=== PATIENT | female | born 1975 | race Caucasian/White ===

== ENCOUNTER 2017-05-25 04:20 | Outpatient (CLI) ==
[2013-02-01 18:16] VITALS: TEMP 98.6
[2016-07-09 08:10] VITALS: BMI 38.6
[2017-05-25 04:54] LABS: BASOPHILS # (AUTO) 0.1 K/uL (0-0.2); BASOPHILS % (AUTO) 0.8 % (0.0-3.0); EOSINOPHILS # (AUTO) 0.2 K/ul (0.0-0.7); EOSINOPHILS % (AUTO) 3.7 % (0.0-7.0); HEMATOCRIT 40.9 % (37.0-47.0); HEMOGLOBIN 13.7 g/dl (12.0-16.0); IMMATURE GRANULOCYTE % (AUTO) 0.3 % (0.0-5.0); LYMPHOCYTES # (AUTO) 2.1 K/uL (0.60-3.4); LYMPHOCYTES % (AUTO) 33.6 (10.0-50.0); MEAN CORPUSCULAR HEMOGLOBIN 30.2 pg (27.0-31.0); MEAN CORPUSCULAR HGB CONC 33.5 (31.8-35.4); MEAN CORPUSCULAR VOLUME 90.3 fl (81.0-99.0); MONOCYTES # (AUTO) 0.7 K/uL (0.4-2.0); MONOCYTES % (AUTO) 11.1 (0-10); NEUTROPHILS # (AUTO) 3.1 K/ul (2.0-6.9); NEUTROPHILS % (AUTO) 50.5; PLATELET COUNT 247 10^3/uL (140-440); RED BLOOD COUNT 4.53 10^6/ul (4.20-5.40); WHITE BLOOD COUNT 6.22 K/ul (4.6-10.2)
[2017-05-25 05:41] LABS: ALBUMIN 3.5 g/dL (3.4-5.0); ALBUMIN/GLOBULIN RATIO 1.06; ANION GAP 13.9; BILIRUBIN,TOTAL 0.41 mg/dL (0.00-1.20); BUN/CREATININE RATIO 14.47; CALCIUM 9.4 mg/dL (8.2-10.2); CHOL/HDL RATIO 5.2 (4.5-5.5); CREATININE 0.76 mg/dL (0.60-1.30); POTASSIUM 3.9 mmol/L (3.5-5.10); TOTAL PROTEIN 6.8 g/dL (6.4-8.2)
== END 2017-05-25 04:21 | disposition home or self-care (01) ==
LOC: LAB 04:20
PROVIDERS: ATTEND Nurse Practitioner Family
DX: Z00.00 Encounter for general adult medical examination without abnormal findings (principal)
CPT/HCPCS: 36415; 80053; 80061; 84443; 85025

== ENCOUNTER 2017-06-20 12:33 | Outpatient (CLI) ==
[2013-02-01 18:16] VITALS: TEMP 98.6
[2016-07-09 08:10] VITALS: BMI 38.6
[2017-06-20 13:05] LABS: FLU INTERNAL QC INTERNAL QC VALID; RAPID FLU A NEGATIVE (NEGATIVE); RAPID FLU B NEGATIVE (NEGATIVE)
== END 2017-06-20 12:34 | disposition home or self-care (01) ==
LOC: LAB 12:33
PROVIDERS: ATTEND Nurse Practitioner Family
DX: J02.9 Acute pharyngitis, unspecified (principal); R50.9 Fever, unspecified
CPT/HCPCS: 87804; 87880

== ENCOUNTER 2017-06-22 20:33 | Emergency (ER) ==
[2017-06-22 20:45] VITALS: BP 137/85; TEMP 99; BMI 37.8
[2017-06-22] MEDS ORDERED: TORADOL IM STA (21:03)
[2017-06-22] MEDS ORDERED: DECADRON 4 MG/ML SDV IM STA (21:03)
--- NOTE | 2017-06-22 21:12 | ED.PDOC ---
General ED Provider: Dr. SHADE MEJIA Chief Complaint: Allergic Reaction Stated Complaint: Left foot redness, swelling itching hurting. Time Seen by Physician: 21:11 Mode of Arrival: Walk-In Information Source: Patient Primary Care Provider: DENNY CAIN Nursing and Triage Documentation Reviewed and Agree: Yes Musculoskeletal Complaint Exam - Ankle/Foot Complaint/Exam Location of Injury: Reports: Left, Foot Symptoms Are: Reports: Still present Onset of Pain: Reports: Immediate Initial Severity: Moderate Current Severity: Moderate Location: Reports: Discrete Character: Reports: Aching Alleviating: Reports: None Aggravating: Reports: Movement, Weight bearing Able to Bear Weight: No Associated Signs and Symptoms: Reports: Swelling, Redness, Fever. Denies: Bruising, Weakness, Numbness, Tingling Related History: Reports: Similar episode Gout Risk Factors: Reports: None Related Surgical History: Reports: None Lower Extremity Findings: Present: Swelling Achilles Tendon Abnormality: No Tenderness: Present: Midfoot, Metatarsals Limited Range of Motion: Present: Inversion, Eversion, Dorsiflexion, Plantarflexion Differential Diagnosis: Gout, Sprain Review of Systems - Review Of Systems Constitutional: Reports: No symptoms Eyes: Reports: No symptoms Ears, Nose, Mouth, Throat: Reports: No symptoms Respiratory: Reports: No symptoms Cardiac: Reports: No symptoms GI: Reports: No symptoms : Reports: No symptoms Musculoskeletal: Reports: No symptoms, Gout, Joint pain Skin: Reports: No symptoms Neurological: Reports: No symptoms Endocrine: Reports: No symptoms Hematologic/Lymphatic: Reports: No symptoms All Other Systems: Reviewed and Negative Past Medical History - Past Medical History Previously Healthy: Yes Endocrine: Reports: None Cardiovascular: Reports: None Respiratory: Reports: None Hematological: Reports: None Gastrointestinal: Reports: None Genitourinary: Reports: None Neuro/Psych: Reports: None Musculoskeletal: Reports: Unknown Cancer: Reports: Other Last Menstrual Period: na - Surgical History General Surgical History: Reports: Unknown - Family History Family History: Reports: Unknown - Social History Smoking Status: Never smoker Hx Substance Use: No Alcohol Screening: None - Immunizations Tetanus Shot up to Date: Yes Physical Exam - Physical Exam Appearance: Well-appearing, Well-nourished Pain Distress: Mild Eyes: TIFFANI, EOMI, Conjunctiva clear ENT: Ears normal, Nose normal, Oropharynx normal Respiratory: Airway patent, Breath sounds clear, Breath sounds equal, Respirations nonlabored Cardiovascular: RRR, Pulses normal, No rub, No murmur GI/: Soft, Nontender, No masses, Bowel sounds normal, No Organomegaly Musculoskeletal: No edema, No calf tenderness, Limited ROM, Limited strength Skin: Warm, Dry, Normal color Neurological: Sensation intact, Motor intact, Reflexes intact, Cranial nerves intact, Alert, Oriented Psychiatric: Affect appropriate, Mood appropriate Interpretation - Radiology Interpretation Radiology Interpretation By: ED Physician Radiology Results: Negative Critical Care Note - Critical Care Note Total Time (mins): 0 Course - Course Orders, Labs, Meds: Orders Category Date Time Status Dexamethasone 4 mg/ml Inj [Decadron 4 mg/ml Sdv] MEDS 06/22/17 21:03 Discontinued 4 mg IM ONCE STA Ketorolac Tromethamine [Toradol] MEDS 06/22/17 21:03 Discontinued 30 mg IM ONCE STA FOOT, LEFT 3 VIEWS Stat RADS 06/22/17 21:03 Taken Medications Discontinued Medications Generic Name Dose Route Start Last Admin Trade Name Claudioq PRN Reason Stop Dose Admin Dexamethasone Sodium Phosphate 4 mg 06/22/17 21:03 06/22/17 21:36 Decadron 4 Mg/Ml Sdv IM 06/22/17 21:04 4 mg ONCE STA Administration Ketorolac Tromethamine 30 mg 06/22/17 21:03 06/22/17 21:36 Toradol IM 06/22/17 21:04 30 mg ONCE STA Administration Vital Signs: Temp Pulse Resp BP Pulse Ox 06/22/17 20:37 99 F 116 H 20 137/85 98 Departure - Departure Time of Disposition: 21:45 Disposition: HOME SELF-CARE Discharge Problem: Allergic state, Foot pain, left Instructions: Swollen Joint (ED) Condition: Good Pt referred to PMD for follow-up: Yes Additional Instructions: rest hot pack continue taking antibiotics along with steroids keep leg elevated Allergies/Adverse Reactions: Allergies amoxicillin Allergy (Severe, Verified 06/22/17 21:32) swelling citric acid Allergy (Intermediate, Verified 06/22/17 21:32) Swelling Lip swelling clindamycin Allergy (Intermediate, Verified 06/22/17 21:32) red rash on feet sulfamethoxazole [From Bactrim] Allergy (Intermediate, Verified 06/22/17 21:32) Rash trimethoprim [From Bactrim] Allergy (Intermediate, Verified 06/22/17 21:32) Rash Home Medications: Ambulatory Orders Omeprazole Magnesium [Prilosec Otc] 20 mg PO BEDTIME 05/05/15 Disposition Discussed With: Patient, Family
[2017-06-22] MEDS ORDERED: INDOCIN PO STA (21:45)
--- NOTE | 2017-06-23 08:44 | DI ---
EXAM: Left foot; PA, lateral, and oblique views HISTORY: Foot pain and swelling COMPARISON: 02/29/2012 FINDINGS: There is no acute fracture or dislocation. Joint spaces and alignment is maintained. There is close approximation of the calcaneus and the navicular bone seen on oblique radiograph. Small dors al talar beaking is present. A small plantar calcaneal enthesiophyte is present. Soft tissues are un remarkable. OPINION: No acute osseous abnormality of the foot. Close approximation of the calcaneus and the navicular bone. This can be seen with a fibrous coaliti on. CT of the foot would better evaluate for tarsal coalition. Small plantar calcaneal enthesiophyte.
== END 2017-06-22 22:30 | disposition home or self-care (01) ==
LOC: ED 20:33
DX: T78.40XA Allergy, unspecified, initial encounter (principal); M79.672 Pain in left foot; M79.89 Other specified soft tissue disorders
CPT/HCPCS: 96372; 99282

== ENCOUNTER 2017-09-10 12:27 | Outpatient (CLI) ==
[2013-02-01 18:16] VITALS: TEMP 98.6
== END 2017-09-10 12:28 | disposition home or self-care (01) ==
LOC: LAB 12:27
PROVIDERS: ATTEND Nurse Practitioner Family
DX: R05 Cough (principal); R50.9 Fever, unspecified
CPT/HCPCS: 87651; 87804

== ENCOUNTER 2017-09-13 12:13 | Outpatient (CLI) ==
[2013-02-01 18:16] VITALS: TEMP 98.6
--- NOTE | 2017-09-13 12:43 | DI ---
EXAM: Chest two views HISTORY: Cough COMPARISON: 08/18/2015 TECHNIQUE: Two views of the chest were performed FINDINGS: Low lung volumes. No airspace consolidation. Subsegmental atelectasis right lung base. Th ere is no pleural effusion or pneumothorax. The heart is normal in size. The mediastinal contour is normal. There are no acute abnormalities of the bones. IMPRESSION: Low lung volumes. Right basilar subsegmental atelectasis. No airspace consolidation.
== END 2017-09-13 12:14 | disposition home or self-care (01) ==
LOC: RAD 12:13
PROVIDERS: ATTEND Nurse Practitioner Family
DX: R05 Cough (principal); R06.02 Shortness of breath

== ENCOUNTER 2017-11-09 04:55 | Outpatient (CLI) ==
[2013-02-01 18:16] VITALS: TEMP 98.6
== END 2017-11-09 04:56 | disposition home or self-care (01) ==
LOC: LAB 04:55
PROVIDERS: ATTEND Nurse Practitioner Family
DX: F41.9 Anxiety disorder, unspecified (principal); F32.9 Major depressive disorder, single episode, unspecified; E78.1 Pure hyperglyceridemia
CPT/HCPCS: 36415; 80053; 80061; 85025

== ENCOUNTER 2018-05-19 06:45 | Outpatient (CLI) ==
[2013-02-01 18:16] VITALS: TEMP 98.6
== END 2018-05-19 06:46 | disposition home or self-care (01) ==
LOC: LAB 06:45
PROVIDERS: ATTEND Nurse Practitioner Family
DX: R73.9 Hyperglycemia, unspecified (principal)
CPT/HCPCS: 36415; 80053; 83036; 84443